=== PATIENT | male | born 1950 | race Caucasian/White ===

== ENCOUNTER 2016-11-30 15:56 | Inpatient (IN) | payer OTHER ==
[~2016-11-30] VITALS: Ht 175.3 cm; Wt 115.0 kg
--- NOTE | ~2016-11-30 | HC ---
[facility] [place] [address] CONSULTATION Name: LANDRYMITRA Room #: 238-[facility] IN ..#: [id number] Admission: 11/30/16 Attend Phys: Kevin Stanley MD Discharge: Date of : 52 Report #: [id number] THIS REPORT FOR: //name// CC: Kevin Nassar DATE OF SERVICE: 11/30/2016 CONSULT NOTE WITH PROCEDURE REASON FOR CONSULTATION: Bleeding from the tongue after seizure. HISTORY OF PRESENT ILLNESS: The patient is a 66-year-old male who is an end-stage renal patient, on dialysis who has had a seizure this afternoon. After seizure presented to the emergency room where he was bleeding profusely from the mouth. He was intubated to secure his airway, was transferred to the intensive care unit. After a conversation I had with the ER physician, where he was having some problems with bleeding from his tongue that persisted after he had been intubated, I instructed the ER physician that packing in his mouth would be effective. He continued to bleed afterwards. In the intensive care unit when he had propofol drip going, then he was sedated up, he did not protrude his tongue and did not push out the Kerlix packing that had been placed by the nurse under ____ instruction, which caused further bleeding. I was called back again, and I asked ____ to pack patient. She went back to the ICU and replaced packing in his mouth. The patient again was not sedated enough to not protrude his tongue and spit out the packing. I have been asked to come and evaluate him this evening for his persistent tongue bleeding. He has just finished dialysis. He has a platelet count of 220,000 and hemoglobin at 1640 today of 8.6. He did have fluid removed and half a liter of fluid was taken off during dialysis. He was hypotensive when he has propofol drip going. PAST MEDICAL HISTORY: Significant for end-stage renal disease. Please see his complete chart. He is otherwise unable to give any history as he is intubated in the ICU. He is not sedated. SOCIAL HISTORY: Noncontributory to this problem. FAMILY HISTORY: Noncontributory to this problem. MEDICATIONS: See his MAR for his list of extensive medications. REVIEW OF SYSTEMS: Unobtainable. PHYSICAL EXAMINATION: GENERAL: He is a well-developed male who is in the intensive care unit. He is expressive and does follow command. [facility] [address] [place] [address] CONSULTATION Name: MITRA ALATORRE Room #: 238-P [facility] IN [facility]#: [id number] Admission: 11/30/16 Attend Phys: Kevin Stanley MD Discharge: Date of : 51 Report #: [id number] HEENT: Head is normocephalic. Pupils are equal. Nasal: No active rhinorrhea or blood from his nose. Oral cavity: He has also endotracheal tube in place. There is a laceration present on the ventral surface of the tongue, 1 cm of the right of midline that is actively bleeding. NECK: No palpable adenopathy. After evaluating the active bleeding from the ventral surface of his tongue, 1% lidocaine with 1:50,000 epinephrine that has been mixed with an ampule of 1:1000 epinephrine 0.25 mL mixed with 20 mL of 1% lidocaine was injected into the ventral tongue. A 4-0 silk suture was then used for azmeqb-iw-ucsqm over the laceration, which immediately stopped the bleeding and the patient did not have any further active bleeding. IMPRESSION: Active bleeding from the tongue following laceration from biting his tongue from the seizure. PLAN: Injection plus mguulj-er-elorx suture used to quell the bleeding. I have asked her hemoglobin to be drawn to make sure he has not had significant blood loss. I will be called with this result and I will proceed accordingly. By: 0040 [id number] Loyd Bennett MD /nt
--- NOTE | ~2016-11-30 | EKG ---
[address] [address] ELECTROCARDIOGRAM REPORT Name: MITRA ALATORRE Room #: 305-P ADM IN M.R.#: [id number] Admission: 11/30/16 Attend Phys: Kevin Stanley MD Discharge: Date of : 51 Report #: [id number] THIS REPORT FOR: //name// [facility] ED Test Date: 2016-11-30 Test Time: 17:38:06 Pat Name: MITRA ALATORRE Department: Room: 305 Gender: M Professional Bondsman: [id number] : 1950 Requested By: Renetta Montoya Order Number: [id number] MD: Prem Delgado Measurements Intervals [place] Rate: 65 P: MI: QRS: -75 QRSD: 147 T: 6 QT: 435 QTc: 453 Interpretive Statements Atrial fibrillation RBBB and LAFB No previous ECG available for comparison Electronically Signed On 12-06-2016 21:33:47 CDT by Prem Delgado [email or web address] <ELECTRONICALLY SIGNED> By: Prem Delgado MD 12/06/16 2133 1738 1738 Prem Delgado MD /AZUL
--- NOTE | ~2016-11-30 | HC ---
[facility] [place] [address] CONSULTATION Name: LANDRYMITRA Room #: 245-[facility] IN ..#: [id number] Admission: 11/30/16 Attend Phys: Kevin Stanley MD Discharge: Date of : 51 Report #: [id number] THIS REPORT FOR: //name// CC: Kevin Nassar DATE OF SERVICE: 12/02/2016 CHIEF COMPLAINT: Left foot surgical incision line. HISTORY OF PRESENT ILLNESS: This is a 66-year-old male patient with a history of left foot osteomyelitis and a transmetatarsal amputation. He was admitted for seizure. I have been asked to see him with regard to ongoing wound care. PAST MEDICAL HISTORY: Positive for end-stage renal disease, diabetes mellitus, congestive heart failure, coronary artery disease, stroke, transmetatarsal amputation of the foot in 08/2016. He has had previous surgical site infection. He underwent debridement and closure and then transferred to [place]. PAST MEDICAL HISTORY: As detailed above, peripheral vascular disease, diabetes, transmetatarsal amputation of the foot. ALLERGIES: NONSTEROIDAL ANTI-INFLAMMATORY MEDICATIONS. FAMILY HISTORY: Noncontributory. SOCIAL HISTORY: Negative for alcohol use. Positive for cigarette use. REVIEW OF SYSTEMS: CONSTITUTIONAL: No fever, chills, weight loss. NEUROLOGICAL: The patient has focal weakness. ENT: The patient denies earache, nasal drainage, sore throat. CARDIOVASCULAR: The patient denies chest pain, palpitation, diaphoresis. PULMONARY: The patient denies cough, shortness of breath. GASTROINTESTINAL: The patient denies nausea or abdominal pain. ORTHOPEDIC: The patient is aware of the surgical incision line. He denies any pain associated with it and is relatively insensate. PHYSICAL EXAMINATION: VITAL SIGNS: At this time include pulse rate 89, respiration of 20, blood pressure 115/70, temperature 98.9. GENERAL: This is a chronically ill-appearing male patient who appears to be in no distress. HEAD: Normocephalic. LUNGS: Clear. [facility] [address] [place] [address] CONSULTATION Name: LANDRYMITRA Room #: 245-P [facility] IN M.R.#: [id number] Admission: 11/30/16 Attend Phys: Kevin Stanley MD Discharge: Date of : 51 Report #: [id number] ABDOMEN: Soft. Bowel sounds present. NECK: Supple. EXTREMITIES: Demonstrate a left foot transmetatarsal amputation with incision and laterally, there is some necrosis along the incision line and a little bit of separation is not overtly infected. CLINICAL IMPRESSION: Left foot osteomyelitis, status post left foot transmetatarsal amputation, status post surgical infection and subsequent debridement and closure. RECOMMENDATIONS: At this point in time, we will recommend topical silver alginate and a gauze dressing to be kept dry. He has sutures in place, although I am not inclined to remove them at this time. His surgery was done by Dr. Iqbal. I do appreciate being asked to see him in consultation. <ELECTRONICALLY SIGNED> By: Sushant Alicia MD 12/03/16 1628 35 58 Sushant Alicia MD /nt
--- NOTE | ~2016-11-30 | HC ---
[facility] [place] [address] CONSULTATION Name: MITRA ALATORRE Kai Room #: 422-P [facility] IN M.R.#: [id number] Admission: 11/30/16 Attend Phys: Jb Stanley MD Discharge: Date of : 51 Report #: [id number] THIS REPORT FOR: //name// CC: JB Moralesfly DATE OF SERVICE: 11/30/2016 PULMONARY CRITICAL CARE CONSULTATION REFERRING PROVIDER: Jb Stanley MD REASON FOR CONSULTATION: Respiratory failure. CHIEF COMPLAINT: Seizures. HISTORY OF PRESENT ILLNESS: Our group was asked to evaluate this patient in consultation while hospitalized at [facility]. Initially I got a call from ____ of the emergency department to evaluate after intubation. Seen up in the ICU. He is currently on hemodialysis at this time. The patient is unable to give any history due to mechanical ventilatory support and altered mental status. Some history taken from review of records. This is a 66-year-old male with prior history of cerebrovascular accident, atrial fibrillation, and type 2 diabetes mellitus, has had some difficulty with lower extremity infections, has a poorly healing transmetatarsal surgery, ongoing wound care and antibiotics at [facility]. The patient developed seizures today and was transferred to our ICU, where he was intubated, has some difficulty with ongoing oral bleeding due to oral trauma related to his seizures. Chest x-ray after intubation revealed a small right pleural effusion, but otherwise relatively clear. No significant secretions from the airway. ALLERGIES: NONSTEROIDAL ANTI-INFLAMMATORIES. PAST MEDICAL HISTORY: 1. End-stage renal disease, on hemodialysis. 2. History of diastolic congestive heart failure. 3. History of atrial fibrillation. 4. History of coronary artery disease. 5. History of cerebrovascular accident with minimal residual. 6. Type 2 diabetes mellitus. 7. History of peptic ulcer disease. 8. Obstructive sleep apnea. 9. Peripheral vascular disease. 10. History of transmetatarsal amputation with ongoing wound dehiscence and debridement and closure with compromised flap, ongoing care at the [facility] [address] [place] [address] CONSULTATION Name: MITRA ALATORRE Room #: 422-P [facility] IN ..#: [id number] Admission: 11/30/16 Attend Phys: Jb Stanley MD Discharge: Date of : 51 Report #: [id number]. SOCIAL HISTORY: The patient had been a smoker. No alcohol consumption. FAMILY HISTORY: Unobtainable at this time. REVIEW OF SYSTEMS: Unobtainable at this time due to his current status. MEDICATIONS: Per JUN. PHYSICAL EXAMINATION: VITAL SIGNS: He is hypothermic, pulse 70s and regular, respiratory rate 16, blood pressure 90/40. GENERAL: This is an elderly male, somewhat combative, but not oriented and interactive. ENT: Mouth packed with Kerlix gauze. Endotracheal tube in place. NECK: Supple, no lymphadenopathy, right upper chest with subclavian line with no surrounding erythema. LUNGS: Essentially clear. CARDIOVASCULAR: Heart was regular. No murmurs noted. ABDOMEN: Soft, nontender, no masses. EXTREMITIES: Revealed left lower extremity wound dressed. There was 2+ bilateral lower extremity edema with some mild erythema and prior right transmetatarsal amputation noted. INTEGUMENT: Multiple areas of ecchymosis between left anterior chest and left upper extremity. LABORATORY DATA: White blood cell count 11,000, hemoglobin 8.5, hematocrit 25, platelet count 227. Sodium is 136, potassium 6.5, chloride 97, bicarbonate 26, BUN 90, creatinine 8.5, glucose 113, phosphorous 6.6. ProBNP is 44,000, albumin 3.0. Arterial blood gas on assist control, tidal volume 550, rate of 18, PEEP of 5, FiO2 of 100% revealed pH 7.28, pCO2 of 50, pO2 of 372, bicarbonate 22. INR 1.2. Chest x-ray as described. IMPRESSION: 1. Seizures, new onset, with negative CT scan of the head, may be related to prior cerebrovascular accident, use of ertapenem, and renal insufficiency with azotemia. Further workup pending per neurology. 2. Respiratory failure secondary to above, likely to wean mechanical ventilatory support when neuro status improves. 3. Hyperkalemia. 4. End-stage kidney disease. 5. Osteomyelitis, status post left transmetatarsal amputation with ongoing wound care. 6. Diabetes mellitus type 2[place] [address] CONSULTATION Name: MITRA ALATORRE Room #: 422-P [facility] IN M.R.#: [id number] Admission: 11/30/16 Attend Phys: Jb Stanley MD Discharge: Date of : 51 Report #: [id number] SUGGESTIONS: 1. Continue ICU care. 2. Antibiotics per infectious disease service. 3. ENT evaluation of oral injury. 4. No indication for bronchodilators necessarily at this time, but would add if the patient has any significant bronchospasm. 5. Wean mechanical ventilatory support when neuro status improves. 6. Neurology evaluation. Thank you for requesting our suggestions, we will follow along with you. <ELECTRONICALLY SIGNED> By: Bib Gonzalez MD 12/03/16 1014 2106 2316 Bib Gonzalez MD /nt
--- NOTE | ~2016-11-30 | HC ---
[facility] [place] [address] CONSULTATION Name: LANDRYMITRA Kai Room #: 245-P [facility] IN M.R.#: [id number] Admission: 11/30/16 Attend Phys: Kevin Stanley MD Discharge: Date of : 51 Report #: [id number] THIS REPORT FOR: //name// CC: Kevin Nassar DATE OF SERVICE: 12/03/2016 PERSONAL PHYSICIAN: Dr. Stanley. CHIEF COMPLAINT: Left foot arterial bleeding. HISTORY OF PRESENT ILLNESS: This is a white male who was admitted for respiratory failure and seizures, who in the remote past had a left foot transmetatarsal amputation with subsequent dehiscence and infection. The patient had currently been receiving treatment at [facility] when he started having seizures and was transferred to [place] for further care. This afternoon, I was called to the patient's room for excessive bleeding coming from his left foot. The nurses stated that earlier in the day, he had had some bleeding. Dr. Dominique of Orthopedics had come by and evaluated the patient and the nurses stated the bleeding had actually subsided. With the pressure dressing, however, shortly before they called me, the pressure dressing was found to be totally saturated. It was approximately 4-5 ABDs over the wound as well as approximately 3 towels, all of which were soaked with blood. When these were taken down, there were 2 areas of arterial bleeding with the blood squirting up into the air. Immediate pressure was placed over these sites. These were coming from the incisional wound on the left foot itself. Approximately 15 minutes of pressure was placed while we were getting ready to suture the wounds. The patient then had approximately 15 mL of 2% lidocaine with epinephrine instilled in the wound itself for anesthesia and then using forceps and a needle tour bus driver/guide and 2-0 silk 5 awccbp-sh-cynfx sutures were placed for ligation of these arterial bleeding sites. Electrocautery was also used on the periphery for further coagulation. After approximately 45 minutes, bleeding appeared to have totally subsided. A pressure dressing was placed back over the wound site with Kerlix and Hal wrap. During the procedure, the patient was noted to go into AFib with rapid ventricular response. The patient's blood pressure remained in the 130s/80s. The patient was given a 250 mL fluid bolus with the heart rate returning back down into the low 100s, it had gotten as high as into the 150s. The patient still remained in AFib. Given the significant amount of bleeding earlier in the day, the patient already had 2 units of blood that had been ordered. We will go ahead and give the 2 units of blood at this point in time and no further fluid boluses were given. Given the instability of the patient, I felt it was appropriate to transfer the patient to the intensive care unit. Dr. Stanley's nurse practitioner, Mery was notified and then we will go see the patient in the ICU at this time. We requested the nurses to notify me if any further bleeding has occurred and at that point in time, [address] [address] CONSULTATION Name: MITRA ALATORRE Room #: 245-P [facility] IN .R.#: [id number] Admission: 11/30/16 Attend Phys: Kevin Stanley MD Discharge: Date of : 51 Report #: [id number] Dominique actually did come into the room towards the end of the procedure and stated that he would be available to take the patient to the operating room if this was necessary later in the day. Upon transfer to the ICU, the patient was at this time more hemodynamically stable and had no further bleeding. Total critical care time was 45 minutes. <ELECTRONICALLY SIGNED> By: Nikolas Fajardo MD 12/04/16 1029 1743 1824 Nikolas Fajardo MD /nt
--- NOTE | ~2016-11-30 | H ---
[facility] [place] [address] HISTORY AND PHYSICAL Name: LANDRYMITRA Kai Room #: 238-P ADM IN M.R.#: [id number] Admission: 11/30/16 Attend Phys: Kevin Stanley MD Discharge: Date of : 51 Report #: [id number] THIS REPORT FOR: //name// CC: Kevin Nassar DATE OF SERVICE: 11/30/2016 HISTORY OF PRESENT ILLNESS: The patient is a 66-year-old male who was transferred from [facility] to [facility] after new onset of tonic-clonic seizure with biting his tongue with major bleeding from his tongue. The patient on arrival to the Emergency Room was not able to maintain his airways. For this reason, he was put on mechanical ventilation. The patient did not have any further seizures after being in the Emergency Room. The patient was seen by Nephrology, where he was found to have potassium of 6 with junctional rhythm and he had emergent hemodialysis. The patient was also seen by ENT and had to stop the bleeding. PAST MEDICAL HISTORY: Significant for infected toes on the left foot status post transmetatarsal amputation in August of 2016. Unfortunately that ended with infection in the area with some revision. The patient was transferred to [facility] on November 27 for continuing care of the wound in addition to HBO treatment. The patient was doing fairly well on that since that time. The patient was on vancomycin and ertapenem as the treatment for his wounds. Other significant medical problem include acute on chronic diastolic congestive heart failure, atrial fibrillation with rapid ventricular response, coronary artery disease status post coronary artery stenting. Previous history of CVA without residual, type 2 diabetes mellitus, insulin-dependent, end-stage renal disease on hemodialysis, peptic ulcer disease with upper GI bleed and MRSA infection. The patient had a history of non-ST elevation myocardial infarction secondary to demand ischemia, obstructive sleep apnea, peripheral arterial disease status post transmetatarsal amputation. The patient had previous history of pneumonia and restless leg syndrome. FAMILY HISTORY: Noncontributory. SOCIAL HISTORY: The patient had 70-gzoj-[id number] history of smoking. He said that he quit smoking when he was asked that he has to have amputation on his foot. The patient denies any alcohol use or drug use. MEDICATIONS: Reviewed. ALLERGIES: NON-STEROIDAL ANTIINFLAMMATORY MEDICATION. PHYSICAL EXAMINATION: GENERAL: The patient is in bed. He is on the [place] [address] HISTORY AND PHYSICAL Name: MITRA ALATORRE Room #: 238-P [facility] IN [facility]#: [id number] Admission: 11/30/16 Attend Phys: Kevin Stanlye MD Discharge: Date of : 51 Report #: [id number] alert, but not able to communicate. VITAL SIGNS: The patient's temperature is 96.5, pulse 84, respiration 14, blood pressure 75/44. HEAD AND NECK: Unremarkable. NECK: Supple. LUNGS: Showed rhonchi involving both lung mayorga. CARDIOVASCULAR: S1, S2, without any murmur or gallop. ABDOMEN: Benign. Bowel sounds were positive. EXTREMITIES: +2 edema bilaterally. LABORATORY DATA: The patient's CBC on arrival to the hospital showed white blood cells of 10.8, hemoglobin 8.5, hematocrit 25.2, platelet count 227, neutrophils are 71%. The patient's ABGs showed a pH of , pCO2 of 54, pO2 of 66 and oxygen saturation of 96%. Urinalysis showed +2 protein, +1 blood and few bacteria. Uric acid was 0.7. INR was 1.2 and PTT was 32.0. Basic metabolic panel showed a sodium of 136, potassium 6.5, chloride 97, bicarbonate 26, BUN 90, creatinine 8.5, glucose 113 and AST 50. The patient's phosphorus is 6.6. Alkaline phosphatase 238 and albumin is 3. BNP was 44,112. Chest x-ray showed ET tube in place, right subclavian line in proper position, poor inspiration, mild bibasilar atelectasis rather than pneumonia and a small right effusion. A 12-lead EKG showed atrial fibrillation with right bundle branch block and left anterior fascicular block. CT of the head showed no acute cerebral process, however, there is diffuse at least moderate chronic cerebral encephalomalacia. Repeated ABGs showed a pH of 7.27, pCO2 of 49, pO2 of 371. Repeated CBC showed a white count of 8.3, hemoglobin 7, hematocrit 20, platelet count of 175 and repeated renal function showed sodium of 136, potassium 4.6, chloride 98, bicarbonate 30, BUN 51, and creatinine is 5.3. Repeated CBC showed hemoglobin of 6 and hematocrit of 19. ASSESSMENT AND PLAN: 1. New onset of seizure. 2. Respiratory failure. 3. Osteomyelitis of the left foot. 4. Diabetes mellitus. 5. Diastolic congestive heart failure. 6. Atrial fibrillation. 7. Coronary artery disease. 8. Massive bleed. 9. Anemia of acute blood loss. The patient will be given 1 unit of blood for now. The patient's potassium was corrected with urgent dialysis. I am not sure if the patient's seizure is due to the use of ertapenem or metabolic encephalopathy. The patient will be evaluated by multiple subspecialties. The patient refused to have any type of anticoagulation in the past because of his [facility] [address] [place] [address] HISTORY AND PHYSICAL Name: LANDRYMITRA RADER Room #: 238-P ADM IN M.R.#: [id number] Admission: 11/30/16 Attend Phys: Kevin Stanley MD Discharge: Date of : 51 Report #: [id number] previous history of gastrointestinal bleed. We will continue to monitor the patient for now. I will add SCDs to the lower extremities. <ELECTRONICALLY SIGNED> By: Kevin Stanley MD 12/02/16 0638 0629 4 Kevin Stanley MD /nt
--- NOTE | ~2016-11-30 | HC ---
[facility] [place] [address] CONSULTATION Name: MITRA ALATORRE Kai Room #: 305-P [facility] IN .R.#: [id number] Admission: 11/30/16 Attend Phys: Kevin Stanley MD Discharge: Date of : 52 Report #: [id number] THIS REPORT FOR: //name// CC: Kevin Nassar DATE OF SERVICE: 11/30/2016 REASON FOR CONSULTATION: End-stage renal disease with hyperkalemia and EKG changes. HISTORY OF PRESENT ILLNESS: This is a 66-year-old male on whom we have further limited medical records at this time. He has end-stage renal disease and is a chronic hemodialysis patient. Mostly recently, he has spent last 3 days at [facility] for management of an osteomyelitis in the left foot. He was undergoing dialysis earlier this afternoon. Apparently, he had a new onset seizure at that time. He was taken off dialysis and transferred here to [facility]. The patient has since been intubated. He is noncommunicative. Hence, with lack of any old medical records here on the [facility] system, we are stuck with his limited records from [place]. Those records do not even list whether the patient had been in the hospital prior to his [place] hospitalization. From a renal failure standpoint, the patient has chronic end-stage renal disease. He has a left upper arm fistula placed. He has been dialyzing through that. Duration of dialysis is unknown. He has diabetes and hypertension and I presume the etiology is secondary to those 2 chronic diseases. He has recurring infections of his feet. He has had prior right and left transmetatarsal amputations. The left has some recent osteomyelitis, which is the reason why he is in [place] that was just redressed and I did not undress that foot. He has chronic lower extremity edema. He has had history of heart failure in the past. No mention made of prior seizures. He has had a history of some intermittent atrial fibrillation. He has scars indicating prior left forearm fistula placements for dialysis. He has had a history of gout. He has had previous GI bleeds, prior inguinal herniorrhaphy. CURRENT MEDICATIONS: Lisinopril 10 mg daily, diltiazem 120 mg daily, Bentyl 20 mg daily, cyclobenzaprine p.r.n., Carafate 1 g q.i.d., MiraLax daily, vitamin D, Prevacid 30 mg daily, ReQuip 1 mg b.i.d., calcium acetate 667 mg t.i.d. with meals, Nephrocaps 1 daily, metoprolol 100 mg daily, aspirin 81 mg daily, vancomycin, sertraline 25 mg daily. ALLERGIES: LISTED NONSTEROIDALS. FAMILY HISTORY: Unavailable. [facility] [address] [place] [address] CONSULTATION Name: MITRA ALATORRE Kai Room #: 305-P [facility] IN M.R.#: [id number] Admission: 11/30/16 Attend Phys: Kevin Stanley MD Discharge: Date of : 52 Report #: [id number] ADDITIONAL SOCIAL HISTORY: Unavailable. REVIEW OF SYSTEMS: Unavailable. PHYSICAL EXAMINATION: GENERAL: Acutely ill patient. HEENT: He has been orally intubated with lots of blood draining from his mouth. Because of his intubation and swollen tongue, unable to tell the source. Pupils are 3 mm on the left, probably 4 mm on the right. They do respond to light. No disconjugate gaze. Sclerae nonicteric. NECK: Supple. No JVD. CHEST: Shows coarse rhonchi bilaterally. They clear mildly with suction through his endotracheal tube. HEART: Has an irregular bradycardia. Review of his EKG shows what appears to be a junctional rhythm with a widened QRS. ABDOMEN: Mildly protuberant. Bowel sounds are absent. Abdomen does not appear to be tender. There is no guarding or rebound. EXTREMITIES: Show a left upper arm brachiocephalic fistula in place. There are still [address], appears to have fairly good flow. He has 2+ edema bilateral lower extremities, which get some chronic venostasis changes removed further down the extremity. He has had right transmetatarsal amputation. The left foot was just dressed and I did not undress it to take a look, but that is the foot where he had the osteomyelitis. NEUROLOGICAL: The patient has recently been given propofol and I am unable to really get response at this time. Chest x-ray shows small right pleural effusion. No gross infiltrates. LABORATORY DATA: Sodium 136, potassium 6.5, chloride 97, bicarb 26, BUN 90, creatinine 8.5, glucose 113, total bilirubin 0.7, calcium 10, phosphorus 6.6, magnesium 2.1, albumin is 3.0. INR 1.2. White count 10.8, hemoglobin 8.5, hematocrit 25.2, platelets 227,000. Differential 71 segs, 11 lymphs, 10 monos, 4 eosinophils, 9 basophils. Urinalysis essentially unremarkable. Blood gas pH 7.24, pCO2 of 54.5, pO2 of 66.6, that is on 100% FiO2 and was right after intubation. ASSESSMENT: 1. End-stage renal disease with hyperkalemia. I am concerned as I think he has EKG changes with what appears to be a junctional rhythm and some widening QRS complexes. He has gotten albuterol, insulin, dextrose and some calcium gluconate in the Emergency Room. He just got those. We will get him urgently dialyzed as soon as he can get to the Intensive Care Unit and get a bed or plan for 3 hours on 2 potassium dialysate. 2. Hyperkalemia with apparent EKG change. Again, he has received emergent therapy for that and I am going to get him dialyzed to get the rest of potassium [facility] [address] [place] [address] CONSULTATION Name: MITRA ALATORRE Room #: 305-P [facility] IN [facility].#: [id number] Admission: 11/30/16 Attend Phys: Kevin Stanley MD Discharge: Date of : 52 Report #: [id number]. 3. Hypotension. At this time, blood pressure is actually doing a bit better. He received a liter of IV fluids in the Emergency Room. He may need pressors. 4. Volume overload with lower extremity edema and pleural effusion. This is apparently a chronic problem. We will get off mild amounts of ultrafiltration if possible during dialysis. 5. New onset seizure, started on Keppra. 6. Longstanding diabetes. 7. Osteomyelitis of left forefoot post amputation, on broad-spectrum antibiotics. 8. Previous right transmetatarsal amputation. PLAN: 1. Emergent dialysis. 2. With his history of volume overload and heart failure, we will try to avoid additional IV fluids. 3. Continue broad-spectrum antibiotics. 4. Anti-seizure medication. 5. Repeat labs in the morning. 6. We will follow along the care of this patient. <ELECTRONICALLY SIGNED> By: Hayes Peraza MD 12/05/16 0908 [id number] Hayes Peraza MD /nt
--- NOTE | ~2016-11-30 | EKG ---
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
--- NOTE | ~2016-11-30 | HC ---
[facility] [place] [address] CONSULTATION Name: MITRA ALATORRE Room #: 238-P ADM IN M.R.#: [id number] Admission: 11/30/16 Attend Phys: Kevin Stanley MD Discharge: Date of : 52 Report #: [id number] THIS REPORT FOR: //name// CC: Kevin Nassar DATE OF SERVICE: 11/30/2016 REASON FOR CONSULTATION: I was asked to evaluate concerning left foot osteomyelitis and seizure disorder. HISTORY OF PRESENT ILLNESS: The patient was a 66-year-old transferred from [facility] where he was being treated for left foot osteomyelitis after transmetatarsal amputation. He has underlying diabetes, end-stage renal disease, diastolic heart failure, coronary artery disease, stroke, who underwent a transmetatarsal amputation in 08/2016. On 11/04/2016, he returned to the hospital with surgical site infection. He required further debridement and closure. Transfers then to [place] on vancomycin and ertapenem. He was admitted on 11/27/2016. Today, he had tonic-clonic seizure. He is now intubated. He is on the ventilator and undergoing dialysis. He did bite his tongue. He has had a fair amount of bleeding regarding this. No fever, chills or sweats. He had some transient hypertension, which has stabilized. The patient remains unresponsive. He has had some mild colonic jerks. Prior to his admission, he had a right chest catheter in place and he dialyzes via left upper extremity AV graft. PAST MEDICAL HISTORY: As noted above with the addition of peptic ulcer disease and upper GI bleed, MRSA infection, obstructive sleep apnea, peripheral vascular disease, pneumonia, restless leg syndrome. ALLERGIES: NONSTEROIDAL ANTIINFLAMMATORIES. MEDICATIONS: As noted on his JUN. The ertapenem was discontinued and he was placed on Zosyn. FAMILY HISTORY: Noncontributory. SOCIAL HISTORY: He is a smoker of cigarettes. No significant alcohol. REVIEW OF SYSTEMS: Noted above. PHYSICAL EXAMINATION: VITAL SIGNS: Currently afebrile, blood pressure is 94/70, pulse 70. This is on FiO2 of 100%. GENERAL: He would startle, but would not follow commands. He was pulling at his restraints. There were intermittent mild clonic jerks both upper and lower [facility] [address] [place] [address] CONSULTATION Name: MITRA ALATORRE Room #: [address] [place] [address] [place] [facility].#: [id number] Admission: 11/30/16 Attend Phys: Kevin Stanley MD Discharge: Date of : 52 Report #: [id number] extremities noted. He was able to move all extremities. HEENT: Pupils were equal, round and reactive to light. He had a fair amount of bleeding from his tongue, which was packed. Mouth was inspected. The tongue appeared to be intact with some small laceration noted. NECK: Supple. CHEST: Right chest catheter site was unremarkable. AV fistula is unremarkable. Chest was coarse anteriorly. HEART: Regular without murmur. ABDOMEN: Soft, nontender, no hepatosplenomegaly or mass appreciated. EXTREMITIES: His left foot transmetatarsal amputation site had some eschar. There was mild surrounding erythema. There was minimal drainage. LABORATORY STUDIES: CT scan of the head, no acute cerebral process, diffuse, moderate cerebral encephalomalacia. Chest x-ray shows basilar atelectasis. Sodium 136, potassium 6.5, bicarbonate 26, creatinine 8.5. Liver function tests normal except for an alkaline phosphatase of 238, an AST of 50. Albumin of 3, INR 1.2. Lactate 0.7. Urinalysis unremarkable. Hemoglobin 8.5, WBC 10.8, platelet count 227,000. IMPRESSION: A 66-year-old status post revision surgery of his left transmetatarsal amputation on 11/04/2016 for underlying infection. He is therefore 26 days post-op, now with seizure and likely aspiration. Source of his seizure is toxic metabolic versus drug effect from ertapenem. PLAN: Recommend obtaining cultures of blood, sputum and discontinue ertapenem and use Zosyn. We will continue with vancomycin. We will follow his chest x-ray. Neurology is seeing and adjusting his medications for seizures. <ELECTRONICALLY SIGNED> By: Kolton Weiss MD 12/01/16 1604 [id number] 09 Kolton Weiss MD /nt
[~2016-11-30 15:56] MED LIST: ACETAMINOPHEN325 M1 PO; ACID CONTROL20 MG PO; ACTOS 45 MG45 M1 PO; AFRIN15 ML NASAL; ALLER-CHLOR4 MG PO; ALLERGY 4-HOUR4 MG PO; ALLFEN400 MG PO; ALLOPURINOL 10100 M1 PO; AMLODIPINE BESY10 MG PO; AMOXICILLIN 50500 MG PO; AMPICILLIN TRI250 MG PO; ANALGESIC325 MG PO; ARTIFICIAL TEA3.5 GM OPHTHALMIC; ARTIFICIAL TEAR15 M1 OPHTHALMIC; ASPIR 8181 MG PO; ASPIRIN325 PO; AUGMENTIN 875875 MG PO; AVODART0.5 MG PO; AZITHROMYCIN 2250 MG PO; BACTRIM DS TAB1 EACH PO; BACTROBAN CREAM30 G1 TOP; BACTROBAN NASAL1 GM NASAL; BACTROBAN22 GM TP; BAYER CHEWABLE81 MG PO; BENADRYL25 MG PO; BENICAR HCT 401 EAC1 PO; BENTYL 20 MG TA20 M1 PO; CALCIUM ACETAT667 M2 PO; CALCIUM ACETAT667 MG PO; CARAFATE 1 GM TA1 G1 PO; CARAFATE1 GM PO; CARDIZEM CD120 MG PO; CEFUROXIME250 MG PO; CEPHALEXIN500 MG PO; CHLOR-TABLET4 MG PO; CIPRO250 M1 PO; CLOTRIMAZOLE-BE15 GM; COD LIVER OIL1 EAC5 PO; COLCHICINE 0.60.6 M1 PO; COLCHICINE0.6 MG PO; COLCRYS0.6 MG PO; COUMADIN 5 MG TA5 M1 PO; COUMADIN5 MG PO; CYCLOBENZAPRINE10 MG PO; CYMBALTA30 MG PO; CYTOTEC100 MCG PO; DECONGESTANT NA15 ML NASAL; DULCOLAX STOOL100 MG PO; DULCOLAX5 MG PO; ENOXAPARIN150 MG/1 M SUBQ; FAMOTIDINE20 MG PO; FIBER LAXATIVE625 MG PO; FIBER-TABS625 MG PO; FIBERCON625 M1 PO; FLAGYL500 MG PO; FLOMAX PO; FORTAZ2 GM IV; FOSRENOL500 MG PO; GABAPENTIN 100100 MG PO; GABAPENTIN300 MG PO; GEMFIBROZIL 60600 MG PO; GENASAL NASAL; GUAIFENESIN400 MG PO; HEPARIN 1,100 UNIT/1 IV; HYDROCODONE-AP1 EACH PO; HYTRIN 2MG CAPSU2 M1 GT; HYTRIN 2MG CAPSU2 M1 PO; JANUVIA100 MG PO; KEFLEX500 MG PO; KETOCONAZOLE60 GM TOP; LACTIC ACID TP; LAMICTAL 25 MG25 MG PO; LEVAQUIN 500 M500 M2 PO; LIPITOR 10 MG10 M1 PO; LIPITOR 20 MG T20 M1 PO; LISINOPRIL10 MG PO; LYRICA; LYRICA 75 MG CA75 MG PO; METAMUCIL PAC1 UDPKT PO; METOPROLOL SUC100 MG PO; METOPROLOL SUCC25 M1 PO; MIRALAX17 G1 PO; MIRALAX17 GM PO; MORPHINE SU IV; MUCINEX TA600 MG/TA2 PO; MUCUS RELIEF C400 MG PO; MUPIROCIN22 GM TOP; MYCOSTATIN TOP; NIZORAL120 ML TOP; NIZORAL120 ML TP; NORVASC10 MG PO; NORVASC5 MG PO; NOVOLOG100 UNIT/1 SQ; NOVOLOG100 UNIT/1 SUBQ; NYSTATIN 100,0015 GM TP; OMEPRAZOLE 20 M20 M1 PO; OMEPRAZOLE20 M2 PO; OMEPRAZOLE20 MG PO; ORALONE5 GM; PACERONE 200 M200 M1 PO; PACERONE400 MG PO; PEPCID20 MG PO; PREDNISONE 10 M10 M1 PO; PREDNISONE 10 M10 MG PO; PREDNISONE 20 M20 MG PO; PREVACID 24HR15 MG PO; PREVACID30 MG PO; PRILOSEC 10MG C10 M1 PO; PRILOSEC OTC20 MG PO; PROBIOTIC1 EAC1 PO; PROTONIX40 M1 PO; RENAL CAPS SOFTG1 MG PO; REQUIP 1 MG TABL1 M1 PO; SALINE FLUSH IV; SENNA-DOCUSATE1 EACH PO; SENOKOT-S1 TA2 PO; SENSIPAR 30 MG30 M1 PO; SERTRALINE HCL25 M1 PO; TEARS NATURALE-15 ML OPHTHALMIC; TEARS NATURALE1 EACH OPHTHALMIC; TOPROL XL25 MG PO; TOPROL XL50 MG PO; TRIAMCINOLONE; TRIAMCINOLONE A15 G1 TOP; TRIAMCINOLONE A80 G2 TOP; TUMS PO; TYLENOL325 MG PO; VAN500AD IV; VANCO1GM IV; VANCOMYCIN IV; VANCOMYCIN1 GM/2502 IVPB; VENTOLIN HFA 1818 GM; VENTOLIN HFA 1818 GM INH; VENTOLIN HFA INH8 GM INH; VENTOLIN HFA INH8 GM PO; VESICARE 5 MG TA5 MG PO; VICODIN PO; VITAMIN D250000 UNIT PO; VOLTAREN GEL 1100 G2 TOP; ZEMPLAR1 MCG PO; ZOFRAN4 MG/5 ML IV; ZOLOFT25 MG; ZOLOFT25 MG PO; [UNRECOGNIZED DRUG - CODE] PO; [UNRECOGNIZED DRUG - OTHER] PO
[2016-11-30 16:50] LABS: ABG SAMPLE TYPE ARTERIAL; BE(vivo) -4.7 mmol/L (-2 to +3); HCO3 22.8 mmol/L (22.0-26.0); LACTATE 1.37 mmol/L (0.5-2.0); O2(CT) 11.7 mL/dL (15.0-23.0); O2Hb 86.3 % (92.0-98.0); PCO2 54.5 mmHg (35.0-45.0); PO2 66.6 mmHg (80.0-100.0); sO2 89.5 % (92.0-98.0); tCO2 24.5 mmol/L (24.0-30.0)
[2016-11-30 16:54] LABS: STICK SITE R.RADIAL; pH 7.239 (7.360-7.450)
[2016-11-30 16:54] LABS: ABSOLUTE NEUTROPHILS 7.7 thou/uL (1.4-8.2); BASOPHILS 0.7 % (0.0-2.0); EOSINOPHILS 4.1 % (0.0-3.0); HEMATOCRIT 25.2 % (42.0-52.0); HEMOGLOBIN 8.5 gm/dL (14.0-18.0); LYMPHOCYTES 13.4 % (24.0-44.0); MANUAL DIFF NO; MCH 30.8 pg (26.0-34.0); MCHC 33.6 g/dL (28.0-37.0); MCV 91.7 fL (80.0-100.0); MONOCYTES 10.4 % (1.0-8.0); PLATELET COUNT 227 thou/uL (150-400); POLYS 71.4 % (36.0-66.0); RBC 2.74 mil/uL (4.50-6.00); RDW 16.8 % (10.5-14.5); URINE BILIRUBIN NEGATIVE (Negative); URINE BLOOD 1+ (Negative); URINE COLOR YELLOW; URINE GLUCOSE-RANDOM* NEGATIVE (Negative); URINE KETONES NEGATIVE (Negative); URINE LEUKOCYTES-REFLEX NEGATIVE (Negative); URINE PROTEIN (DIPSTICK) 2+ (Negative); URINE UROBILINOGEN 0.2 E.U./dl (0.2-1.0); WBC 10.8 thou/uL (4.0-11.0)
[2016-11-30 16:55] LABS: TIDAL VOLUME 550 ml
[2016-11-30 17:00] LABS: CREATININE 8.5 mg/dL (0.7-1.3)
[2016-11-30 17:01] LABS: SQUAMOUS None Seen /LPF (0-3)
[2016-11-30 17:02] LABS: CASTS None Seen /LPF (None Seen); CRYSTALS None Seen /LPF (None Seen); URINE RBC 0-2 Rare /HPF (0-2); URINE WBC-REFLEX 0-5 Rare /HPF (0-5)
[2016-11-30 17:06] LABS: POTASSIUM 6.5 mmol/L (3.5-5.1)
[2016-11-30 17:09] LABS: INR 1.2
[2016-11-30 17:14] LABS: TOTAL BILIRUBIN 0.7 mg/dL (<0.1-1.0)
[2016-11-30 17:15] LABS: DIRECT BILIRUBIN 0.3 mg/dL (<0.1-0.3); MAGNESIUM 2.1 mg/dL (1.8-2.4); PHOSPHORUS 6.6 mg/dL (2.5-4.9)
[2016-11-30 19:20] LABS: ABG SAMPLE TYPE ARTERIAL; BE(vivo) -4.1 mmol/L (-2 to +3); HCO3 22.5 mmol/L (22.0-26.0); LACTATE 1.02 mmol/L (0.5-2.0); O2Hb 98.8 % (92.0-98.0); PCO2 49.5 mmHg (35.0-45.0); PO2 371.8 mmHg (80.0-100.0); sO2 99.7 % (92.0-98.0)
[2016-11-30 19:21] LABS: pH 7.276 (7.360-7.450)
[2016-11-30 19:22] LABS: STICK SITE R.RADIAL; TIDAL VOLUME 550 ml
[2016-12-01 00:26] LABS: HEMATOCRIT 20.7 % (42.0-52.0); MCH 30.6 pg (26.0-34.0); MCHC 33.8 g/dL (28.0-37.0); MCV 90.4 fL (80.0-100.0); RBC 2.29 mil/uL (4.50-6.00); RDW 16.3 % (10.5-14.5); WBC 8.3 thou/uL (4.0-11.0)
[2016-12-01 05:58] LABS: HEMOGLOBIN 6.7 gm/dL (14.0-18.0); RDW 16.5 % (10.5-14.5)
[2016-12-01 05:59] LABS: MCH 30.7 pg (26.0-34.0); MCV 90.3 fL (80.0-100.0); RBC 2.19 mil/uL (4.50-6.00); WBC 8.6 thou/uL (4.0-11.0)
[2016-12-01 06:00] LABS: HEMATOCRIT 19.8 % (42.0-52.0)
[2016-12-01 06:08] LABS: ALBUMIN 2.3 g/dL (3.4-5.0); CALCIUM 9.1 mg/dL (8.5-10.1); PHOSPHORUS 4.6 mg/dL (2.5-4.9)
[2016-12-01 06:09] LABS: CREATININE 5.3 mg/dL (0.7-1.3); POTASSIUM 4.6 mmol/L (3.5-5.1)
[2016-12-01 07:15] VITALS: BP 91/58; BP 91/67
[2016-12-01 13:39] LABS: HEMATOCRIT 21.8 % (42.0-52.0); HEMOGLOBIN 7.4 gm/dL (14.0-18.0)
[2016-12-01 17:57] LABS: ABG SAMPLE TYPE ARTERIAL; BE(vivo) -1.2 mmol/L (-2 to +3); HCO3 24.2 mmol/L (22.0-26.0); LACTATE 0.75 mmol/L (0.5-2.0); O2(CT) 11.2 mL/dL (15.0-23.0); O2Hb 97.2 % (92.0-98.0); PCO2 44.1 mmHg (35.0-45.0); PO2 133.8 mmHg (80.0-100.0); STICK SITE R.RADIAL; pH 7.358 (7.360-7.450); sO2 98.6 % (92.0-98.0); tCO2 25.6 mmol/L (24.0-30.0)
[2016-12-01 17:58] LABS: ABG COMMENT CPAP TRIAL.; Pressure Support 6 cm H20
[2016-12-02 05:26] LABS: HEMATOCRIT 21.2 % (42.0-52.0); HEMOGLOBIN 7.1 gm/dL (14.0-18.0); MCH 30.5 pg (26.0-34.0); MCHC 33.6 g/dL (28.0-37.0); MCV 90.7 fL (80.0-100.0); PLATELET COUNT 161 thou/uL (150-400); RBC 2.34 mil/uL (4.50-6.00); RDW 16.7 % (10.5-14.5); WBC 8.2 thou/uL (4.0-11.0)
[2016-12-02 05:31] LABS: MANUAL DIFF YES
[2016-12-02 05:35] LABS: CALCIUM 9.2 mg/dL (8.5-10.1); POTASSIUM 4.8 mmol/L (3.5-5.1)
[2016-12-02 05:50] LABS: CREATININE 6.8 mg/dL (0.7-1.3)
[2016-12-02 06:45] LABS: ABSOLUTE NEUTROPHILS 5.3 thou/uL (1.4-8.2); ANISOCYTOSIS 1+; TOTAL CELL COUNT 100
[2016-12-02 12:00] VITALS: BP 111/71
[2016-12-02 13:15] VITALS: BP 117/64
[2016-12-02 16:04] VITALS: BP 115/70
[2016-12-02 19:37] VITALS: BP 108/63
[2016-12-03] VITALS (14 sets, daily range): BP systolic 110–162; BP diastolic 69–111
[2016-12-03 05:42] LABS: HEMATOCRIT 23.5 % (42.0-52.0); HEMOGLOBIN 7.8 gm/dL (14.0-18.0); MCH 29.9 pg (26.0-34.0); MCV 90.6 fL (80.0-100.0); PLATELET COUNT 168 thou/uL (150-400); RBC 2.59 mil/uL (4.50-6.00); WBC 8.1 thou/uL (4.0-11.0)
[2016-12-03 05:49] LABS: MANUAL DIFF YES
[2016-12-03 06:08] LABS: CALCIUM 9.5 mg/dL (8.5-10.1); POTASSIUM 4.5 mmol/L (3.5-5.1)
[2016-12-03 06:09] LABS: CREATININE 4.9 mg/dL (0.7-1.3)
[2016-12-03 07:49] LABS: ABSOLUTE NEUTROPHILS 5.8 thou/uL (1.4-8.2); PLATELET ESTIMATE NORMAL; TOTAL CELL COUNT 100
[2016-12-03 08:36] LABS: WBC 8.1 thou/uL (4.0-11.0)
[2016-12-03 08:37] LABS: MCH 30.9 pg (26.0-34.0); MCHC 34.1 g/dL (28.0-37.0); MCV 90.5 fL (80.0-100.0); PLATELET COUNT 157 thou/uL (150-400); RBC 2.18 mil/uL (4.50-6.00)
[2016-12-03 08:44] LABS: MANUAL DIFF YES
[2016-12-03 08:45] LABS: HEMATOCRIT 19.7 % (42.0-52.0)
[2016-12-03 08:46] LABS: HEMOGLOBIN 6.7 gm/dL (14.0-18.0)
[2016-12-03 08:50] LABS: APTT 32.9 Seconds (24.5-32.8); CALCIUM 9.5 mg/dL (8.5-10.1); CREATININE 5.1 mg/dL (0.7-1.3); INR 1.2; POTASSIUM 4.5 mmol/L (3.5-5.1); PROTIME 12.6 Seconds (9.3-11.4)
[2016-12-03 09:00] LABS: ABSOLUTE NEUTROPHILS 6.4 thou/uL (1.4-8.2); PLATELET ESTIMATE NORMAL; TOTAL CELL COUNT 100
[2016-12-03 09:01] LABS: HYPOCHROMASIA 1+
[2016-12-03 13:00] LABS: ABG SAMPLE TYPE ARTERIAL; BE(vivo) 3.1 mmol/L (-2 to +3); HCO3 28.4 mmol/L (22.0-26.0); LACTATE 1.59 mmol/L (0.5-2.0); O2(CT) 9.1 mL/dL (15.0-23.0); O2Hb 93.8 % (92.0-98.0); PCO2 47.5 mmHg (35.0-45.0); PO2 83.1 mmHg (80.0-100.0); pH 7.394 (7.360-7.450); sO2 96.1 % (92.0-98.0); tCO2 29.8 mmol/L (24.0-30.0)
[2016-12-03 13:02] LABS: STICK SITE R.RADIAL
[2016-12-04] VITALS (29 sets, daily range): BP systolic 95–122; BP diastolic 61–94
[2016-12-04 05:30] LABS: HEMATOCRIT 21.3 % (42.0-52.0); HEMOGLOBIN 7.3 gm/dL (14.0-18.0); MCH 30.3 pg (26.0-34.0); MCHC 34.1 g/dL (28.0-37.0); MCV 88.7 fL (80.0-100.0); RBC 2.4 mil/uL (4.50-6.00); RDW 16.7 % (10.5-14.5); WBC 7.9 thou/uL (4.0-11.0)
[2016-12-04 05:41] LABS: CALCIUM 9.2 mg/dL (8.5-10.1); POTASSIUM 5.4 mmol/L (3.5-5.1)
[2016-12-04 05:45] LABS: CREATININE 6.2 mg/dL (0.7-1.3)
[2016-12-05 03:42] VITALS: BP 115/68
[2016-12-05 04:05] LABS: HEMATOCRIT 22.1 % (42.0-52.0); HEMOGLOBIN 7.5 gm/dL (14.0-18.0); MCH 30.3 pg (26.0-34.0); MCHC 33.8 g/dL (28.0-37.0); MCV 89.6 fL (80.0-100.0); RBC 2.46 mil/uL (4.50-6.00); RDW 16.8 % (10.5-14.5); WBC 9.4 thou/uL (4.0-11.0)
[2016-12-05 04:09] LABS: ALBUMIN 2.7 g/dL (3.4-5.0); CALCIUM 9.2 mg/dL (8.5-10.1); CREATININE 4.4 mg/dL (0.7-1.3); PHOSPHORUS 4.6 mg/dL (2.5-4.9); POTASSIUM 4.8 mmol/L (3.5-5.1)
[2016-12-05] MEDS ORDERED: LEVETIRACETAM250 MG PO (05:57)
[2016-12-05] MEDS ORDERED: PROCRIT20000 UNIT SUBQ (05:57)
[2016-12-05] MEDS ORDERED: ZOSYN 2.25 GR2.25 GM IV (05:57)
[2016-12-05] MEDS ORDERED: VANCO 1 GR1 GM/250 M IVPB (05:57)
[2016-12-05] MEDS ORDERED: XANAX 0.25 MG0.25 MG PO (05:57)
[2016-12-05] MEDS ORDERED: KEPPRA 500 MG500 M1 PO (05:57)
[2016-12-05 07:50] VITALS: BP 120/60
[2016-12-05 14:31] VITALS: BP 106/69
[2016-12-05 20:00] VITALS: BP 122/82
[2016-12-06 04:00] VITALS: BP 123/80
[2016-12-06 07:25] VITALS: BP 119/80
[2016-12-06 19:25] VITALS: BP 114/75
[2016-12-07 04:34] VITALS: BP 109/69
[2016-12-07 06:43] LABS: HEMATOCRIT 23.6 % (42.0-52.0); HEMOGLOBIN 7.6 gm/dL (14.0-18.0); MCH 29.7 pg (26.0-34.0); MCHC 32.3 g/dL (28.0-37.0); MCV 91.9 fL (80.0-100.0); RBC 2.56 mil/uL (4.50-6.00); RDW 16.8 % (10.5-14.5); WBC 8.2 thou/uL (4.0-11.0)
[2016-12-07 06:56] LABS: ALBUMIN 2.8 g/dL (3.4-5.0); CALCIUM 9.5 mg/dL (8.5-10.1); POTASSIUM 5.3 mmol/L (3.5-5.1)
[2016-12-07 06:58] LABS: CREATININE 7.1 mg/dL (0.7-1.3)
[2016-12-07 07:15] VITALS: BP 161/71
[2016-12-07 19:27] VITALS: BP 129/72
== END 2016-12-07 19:52 | DRG 208 ==
LOC: ER 15:56 → EROBS 18:13 → ICU 18:13 → 4E 12-02 12:47 → ICU 12-03 12:39 → 3N 12-04 11:46
PROVIDERS: Emergency Medicine; Hospitalist; Internal Medicine; Internal Medicine Nephrology; Internal Medicine Pulmonary Disease; Otolaryngology Plastic Surgery within the Head & Neck; Psychiatry & Neurology Neurology
PROC: 0BH17EZ Insertion of Endotracheal Airway into Trachea, Via Natural or Artificial Opening (ICD-10-PCS; principal; 2016-11-30)
PROC: 5A1945Z Respiratory Ventilation, 24-96 Consecutive Hours (ICD-10-PCS; principal; 2016-11-30)
PROC: 05H533Z Insertion of Infusion Device into Right Subclavian Vein, Percutaneous Approach (ICD-10-PCS; 2016-12-01)
PROC: 30233N1 Transfusion of Nonautologous Red Blood Cells into Peripheral Vein, Percutaneous Approach (ICD-10-PCS; 2016-12-01)
PROC: 5A1D60Z (ICD-10-PCS; 2016-12-07)
DX: J96.00 Acute respiratory failure, unspecified whether with hypoxia or hypercapnia (principal); N18.6 End stage renal disease; G93.40 Encephalopathy, unspecified; I50.30 Unspecified diastolic (congestive) heart failure; M86.8X7 Other osteomyelitis, ankle and foot; D62 Acute posthemorrhagic anemia; I13.2 Hypertensive heart and chronic kidney disease with heart failure and with stage 5 chronic kidney disease, or end stage renal disease; N40.0 Benign prostatic hyperplasia without lower urinary tract symptoms; E11.40 Type 2 diabetes mellitus with diabetic neuropathy, unspecified; M10.9 Gout, unspecified; E87.5 Hyperkalemia; E11.51 Type 2 diabetes mellitus with diabetic peripheral angiopathy without gangrene; I25.10 Atherosclerotic heart disease of native coronary artery without angina pectoris; R56.9 Unspecified convulsions; I48.91 Unspecified atrial fibrillation; G47.33 Obstructive sleep apnea (adult) (pediatric); G25.81 Restless legs syndrome; I95.9 Hypotension, unspecified; E11.69 Type 2 diabetes mellitus with other specified complication; E87.70 Fluid overload, unspecified; K21.9 Gastro-esophageal reflux disease without esophagitis; F32.9 Major depressive disorder, single episode, unspecified; J40 Bronchitis, not specified as acute or chronic; E11.22 Type 2 diabetes mellitus with diabetic chronic kidney disease; Z79.899 Other long term (current) drug therapy; Z88.6 Allergy status to analgesic agent; Z89.429 Acquired absence of other toe(s), unspecified side; Z99.2 Dependence on renal dialysis; I69.30 Unspecified sequelae of cerebral infarction; I25.2 Old myocardial infarction; Z87.01 Personal history of pneumonia (recurrent); Z87.891 Personal history of nicotine dependence; Z79.4 Long term (current) use of insulin
CPT/HCPCS: 10078; 10183; 10795; 32100; 56524; 56526